=== PATIENT | male | born 1955 | race Caucasian/White ===

== ENCOUNTER 2022-07-03 17:54 | Inpatient (IN) | payer MEDICARE, OTHER ==
[~2022-07-03] VITALS: Ht 182.9 cm; Wt 77.8 kg
[2022-07-03] MEDS ORDERED: LORAZEPAM INJ 2 MG/ML VIAL ONE ×2 (18:21→19:50)
--- NOTE | 2022-07-03 18:21 | NUR ---
iv established. 20G RAC
[2022-07-03] MEDS ORDERED: ONDANSETRON 4 MG TAB.RAPDIS ONE (18:22)
[2022-07-03] MEDS ORDERED: CHLORDIAZEPOXIDE HCL 25 MG CAPSULE ONE ×2 (18:22→18:24)
--- NOTE | 2022-07-03 18:23 | NUR ---
blood drawn and sent to lab
[2022-07-03] MEDS ORDERED: CHLORDIAZEPOXIDE HCL 25 MG CAPSULE PO ONE (18:30)
[2022-07-03] MEDS ORDERED: IV NS 0.9% 1,000 ML BAG IV ONE (18:30)
[2022-07-03] MEDS ORDERED: LORAZEPAM INJ 2 MG/ML VIAL IVP ONE (18:30)
[2022-07-03] MEDS ORDERED: ONDANSETRON 4 MG TAB.RAPDIS PO ONE (18:30)
[2022-07-03 18:35] LABS: BASOPHILS % (AUTO) 0.4 % (0.0-2.0); HEMATOCRIT 44 % (39-51); HEMOGLOBIN 14.5 g/dL (13.5-17.5); LYMPHOCYTES # (AUTO) 0.7 K/uL (0.8-4.8); LYMPHOCYTES % (AUTO) 6.2 % (20.0-44.0); MEAN CORPUSCULAR HGB CONC 33 g/dl (31.0-36.0); MEAN CORPUSCULAR VOLUME 94 fL (80-96); MONOCYTES # (AUTO) 0.8 K/uL (0.1-1.30); MONOCYTES % (AUTO) 7.7 % (2.0-12.0); NEUTROPHILS # (AUTO) 9.1 K/uL (1.8-8.9); NEUTROPHILS % (AUTO) 85.7 % (43.0-81.0); PLATELET COUNT (AUTO) 168 K/uL (150-450); RED BLOOD CELL COUNT(AUTO) 4.63 MIL/uL (4.5-6.0); WHITE BLOOD COUNT (AUTO) 10.6 K/uL (4.3-11.0)
[2022-07-03] MEDS ORDERED: ESCI10TA PO (18:39)
[2022-07-03] MEDS ORDERED: METF-440 PO (18:39)
[2022-07-03] MEDS ORDERED: PANT40TA49 PO (18:39)
[2022-07-03] MEDS ORDERED: ROSU40TA23 PO (18:39)
--- NOTE | 2022-07-03 18:47 | NUR ---
MOVE SHEET SUBMITTED.
--- NOTE | 2022-07-03 18:57 | NUR ---
COVID SWAB COLLECTED AND SENT TO LAB
[2022-07-03 19:00] LABS: ALANINE AMINOTRANSFERASE 119 U/L (12-78); ALKALINE PHOSPHATASE 84 U/L (46-116); ASPARTATE AMINOTRANSFERASE 116 U/L (15-37); BILIRUBIN,DIRECT 0.6 mg/dL (0.0-0.2); BILIRUBIN,TOTAL 2.1 mg/dL (0.2-1.0); CALCIUM, SERUM 10.5 mg/dL (8.5-10.1); CARBON DIOXIDE 30 mmol/L (21-32); CHLORIDE 92 mmol/L (98-107); CREATININE 1.3 mg/dL (0.6-1.3); GLUCOSE 184 mg/dL (74-106); MAGNESIUM 1.4 mg/dL (1.8-2.4); POTASSIUM 3.3 mmol/L (3.5-5.1); SODIUM SERUM 138 mmol/L (136-145); TOTAL PROTEIN, SERUM 7.8 g/dL (6.4-8.2); UREA NITROGEN, BLOOD 21 mg/dL (7-18)
[2022-07-03 19:18] LABS: ALCOHOL, BLOOD < 3 mg/dL (0-0)
[2022-07-03] MEDS ORDERED: Magnesium 1GM/D5W 100ML PREMIX 100 ML IV SCH (19:30)
[2022-07-03] MEDS ORDERED: Folic acid 1 MG/0.2 ML VIAL IM ONE (19:30)
[2022-07-03] MEDS ORDERED: LORAZEPAM INJ 2 MG/ML VIAL IV ONE (19:30)
[2022-07-03] MEDS ORDERED: IV LR 1000 ML 1,000 ML IV ONE (19:30)
[2022-07-03] MEDS ORDERED: POTASSIUM CHLORIDE 20 MEQ TAB.PRT.SR PO ONE ×2 (19:30→19:50)
--- NOTE | 2022-07-03 19:30 | NUR ---
1G OF MG STARTED 100ML/HR
[2022-07-03] MEDS ORDERED: Folic acid 1 MG/0.2 ML VIAL ONE (19:49)
[2022-07-03] MEDS ORDERED: MULTIVIT W/MINERALS 1 TAB TABLET ONE (19:49)
[2022-07-03] MEDS ORDERED: Magnesium 1 GM/2 ML VIAL ONE (19:49)
[2022-07-03] MEDS ORDERED: Magnesium 1GM/D5W 100ML PREMIX 200 ML IV ONE (19:54)
--- NOTE | 2022-07-03 20:00 | NUR ---
Jhoan gillespie in ED - 07/03/22 at 2127 by MITESH 1GM MG SULFATE STARTED ON RIGHT AC G20. END TIME 2100H
[2022-07-03] MEDS ORDERED: FOLIC ACID 1 MG TABLET ONE (20:08)
[2022-07-03] MEDS: MULTIVITAMINS,THERAGRAN 1 UDTAB TABLET PO SCH (20:11)
--- NOTE | 2022-07-03 20:20 | NUR ---
SPOKE TO PHARMACIST ABOUT HOW TO EXECUTE MG SULFATE ORDER IN EMR. SHE CANNOT GIVE ME THE ANSWER, WE TRIED SORTING IT OUT BUT NOT WORKING. I INFORMED HER THAT WE WILL MAKE NURSES NOTES WITH REGARDS TO MG SULFATE.
--- NOTE | 2022-07-03 20:30 | NUR ---
FIRST DOSE OF MG END TIME 2029, SECOND DOSE OF 1G MG STARTED 2029
[2022-07-03] MEDS ORDERED: ACETAMINOPHEN 325 MG TABLET PO PRN (21:00)
[2022-07-03] MEDS ORDERED: HYDROCODONE/APAP 5/325MG TABLET PO PRN (21:00)
[2022-07-03] MEDS ORDERED: ONDANSETRON HCL/PF 4 MG/2 ML VIAL IVP PRN (21:00)
[2022-07-03] MEDS ORDERED: Z GUARD REMEDY 4 OZ OINT TP PRN (21:00)
[2022-07-03] MEDS ORDERED: MAGNESIUM HYDROXIDE 30 ML UDC PO PRN (21:00)
[2022-07-03] MEDS ORDERED: Magnesium 1GM/D5W 100ML PREMIX PIGGYBACK IV ONE (21:30)
--- NOTE | 2022-07-03 21:30 | NUR ---
HANDOFF REPORT GIVEN TO ORLY SALGADO FOR INPATIENT SERVICES
--- NOTE | 2022-07-03 21:30 | NUR ---
MG STOP TIME 2129
[2022-07-03 21:41] VITALS: BP 138/80
--- NOTE | 2022-07-03 21:41 | NUR ---
TELE ADMISSION NOTE RECEIVED REPORT FORM ER NURSE NISHANT. PT BEING ADMITTED IN ROOM 308-2 FOR ALCOHOL WITHDRAWAL. PT A/0 X3-4, WITH CONFUSION. ABLE TO MAKE NEEDS KNOWN. PT ABLE TO AMBULATE WITH UNSTEADY GAIT. NO RESPIRATORY DISTRESS NOTED. NO C/O PAIN AT THIS TIME. PHYSICAL ASSESSMENT DONE. PT HAS SCARS TO DAVID KNEE, AND SCABS TO DAVID FA. BELONGING VERIFIED, AND BELONGING LIST SIGNED, AND PLACED IN CHART. PT'S MEDS FROM HOME PLACED IN BAG, AND WILL BE SENT TO PHARMACY. PT HAS LEFT IV ACCESS TO LEFT AC #20 G WITH NS INFUSING AT 75 ML/HR. SAFETY MEASURES IN PLACE: BED IN LOW POSITION, SR UP X2, CALL LIGHT WITHIN REACH. WILL CONTINUE TO MONITOR PT.
--- NOTE | 2022-07-03 21:59 | NUR ---
Jhoan gillespie in [facility] - 07/03/22 at 2159 by ANDRÉS MG STOP TIME 9587
--- NOTE | 2022-07-03 22:00 | NUR ---
PT TRANSFER TO 3 IN STABLE CONDITION ACLS TRASPORT RN AT BEDSIDE. RECEIVING NURSE PRESENT AT TIME OF ADMISSION.
[2022-07-04] VITALS: BP 142/84
[2022-07-04] MEDS ORDERED: DEXTROSE 50%-WATER 50 ML DISP.SYRIN IV PRN (00:30)
[2022-07-04 05:00] VITALS: BP 140/82
[2022-07-04 07:00] VITALS: BP 146/75
[2022-07-04 07:27] LABS: BASOPHILS % (AUTO) 0.2 % (0.0-2.0); HEMATOCRIT 39 % (39-51); HEMOGLOBIN 13.2 g/dL (13.5-17.5); LYMPHOCYTES # (AUTO) 0.8 K/uL (0.8-4.8); LYMPHOCYTES % (AUTO) 11.5 % (20.0-44.0); MEAN CORPUSCULAR HGB CONC 34 g/dl (31.0-36.0); MEAN CORPUSCULAR VOLUME 93 fL (80-96); MONOCYTES # (AUTO) 0.8 K/uL (0.1-1.30); MONOCYTES % (AUTO) 10.7 % (2.0-12.0); NEUTROPHILS # (AUTO) 5.5 K/uL (1.8-8.9); NEUTROPHILS % (AUTO) 77.6 % (43.0-81.0); PLATELET COUNT (AUTO) 129 K/uL (150-450); WHITE BLOOD COUNT (AUTO) 7.1 K/uL (4.3-11.0)
[2022-07-04] MEDS: IV NS 0.9% 1,000 ML IV PRN (07:39)
[2022-07-04] MEDS: BLOOD SUGAR DIAGNOSTIC 1 EACH STRIP IN SCH ×4 (07:39→22:28)
[2022-07-04] MEDS: INSULIN REGULAR, HUMAN 100 UNIT/ML 3 ML VIAL SQ PRN ×2 (07:40→22:28)
--- NOTE | 2022-07-04 07:40 | NUR ---
MOLDING PLASTERER CLOSING NOTE LEFT PATIENT AWAKE IN BED. PATIENT IS A/O X3-4. ON ROOM AIR, TOLERATING WELL, BREATHING EVENLY AND UNLABORED. IV ACCESS TO LEFT AC G#20, WITH NS RUNNING AT 75 ML/HR. NO SOB, DENIES PAIN OR DISCOMFORT AT THIS TIME. PT ON TELE MONITOR, READING SINUS RHYTHM WITH HR: 86. SAFETY MEASURES MAINTAINED. BED IN LOWEST POSITION. SIDE RAILS UP X2. CALL LIGHT WITHIN REACH. WILL ENDORSE PT TO AM SHIFT FOR JIM.
[2022-07-04 07:53] LABS: CALCIUM, SERUM 9.6 mg/dL (8.5-10.1); CREATININE 1.2 mg/dL (0.6-1.3); MAGNESIUM 1.9 mg/dL (1.8-2.4); PHOSPHORUS 2.4 mg/dL (2.5-4.9); POTASSIUM 3.2 mmol/L (3.5-5.1)
--- NOTE | 2022-07-04 08:00 | NUR ---
ICE CREAM FREEZER HELPER Opening Note Patient in bed, awake, A/O x3-4, on RA. IV access at LAC #20G infusing NS @ 75 ml/h, on tele monitoring. Frequently redirect patient per patient's need. Safety measure in place, bed in low, locked, side rails up x2, call light at reach. Will continue to monitor patient.
[2022-07-04] MEDS: FOLIC ACID 1 MG TABLET PO SCH (08:28)
[2022-07-04] MEDS: MULTIVITAMINS,THERAGRAN 1 UDTAB TABLET PO SCH (08:28)
[2022-07-04] MEDS: THIAMINE HCL 100 MG TABLET PO SCH (08:28)
[2022-07-04] MEDS: CHLORDIAZEPOXIDE HCL 25 MG CAPSULE PO SCH ×3 (08:29→16:04)
[2022-07-04] MEDS: PANTOPRAZOLE 40 MG TABLET.DR PO SCH (08:38)
[2022-07-04] MEDS: POTASSIUM CHLORIDE 20 MEQ TAB.PRT.SR PO SCH ×2 (11:03→12:24)
--- NOTE | 2022-07-04 11:17 | NUR ---
SW Consult: SW consult requested for patient possible substance abuse. Pt brought to the hospital due to alcohol withdrawal. Patient presents alert and oriented x3 (self,place,time). Patient appeared to present with somewhat confusion. He stated that he was brought to the hospital due to "suffering from alcohol withdrawal". Pt stated that he has been drinking for years and has been in and out of treatment centers ([facility] and ). [place] [address] [address]; ([phone]). 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 Patient lives with his Andra and would want to return back home. SW assessed for suicidal or homicidal, pt denied. SW assessed any hallucinations visual/auditory, pt denied. SW assessed for substance abuse and pt expressed that he has been drinking alcohol everyday. Pt denied any use of drugs. SW offered pt resources and was accepting of substance abuse referrals. DC PLAN: [place] [address] [address]; ([phone]). Substance Abuse resources provided included: [facility] Substance Abuse Self-Helpline ([facility]) ; [facility] [address] [facility]. [place] [id number] ; [place] [id number] [facility] [address] ; [facility] [address] [facility] [address] ; [facility] [place] [facility] [address] ; [facility] [address] [facility] [address] ; [facility] [address] [facility] [address] ; [facility] Substance Abuse Helpline([facility])-[facility] ; [facility] ; [facility] [place]; [facility] [place]; [facility] [place]; [facility] [place]; [facility] [place]; [facility]; [facility] [place]; [facility], [facility]. Kayla Ramires; Alcoholics Anonymous [facility]; [place] ; Marijuana Anonymous [facility]; Narcotics Anonymous www.na.org;
[2022-07-04 12:14] VITALS: BP 140/87
--- NOTE | 2022-07-04 14:00 | NUR ---
RN NOTE Patient took off tele box and refusing to put back on.
[2022-07-04] MEDS: LORAZEPAM INJ 2 MG/ML VIAL IV PRN ×2 (15:17→20:43)
--- NOTE | 2022-07-04 15:17 | NUR ---
RN NOTE Patient is agitated, walking around the hallway. Tremors also noted. PRN Ativan 1 mg given. Will continue to monitor.
[2022-07-04] MEDS ORDERED: K PHOS NEUTRAL 250 MG TABLET PO ONE (16:00)
--- NOTE | 2022-07-04 19:07 | NUR ---
RN NOTE Patient pulled out IV access. New IV access re-inserted on LFA #20, flushes well.
--- NOTE | 2022-07-04 19:13 | NUR ---
VP CLINICAL Closing Note Patient in bed, awake, A/O x3 confused, on RA, no s/s of distress/SOB/pain. IV LFA #20G running NS @ 75 ml/h. On tele monitoring. Safety measure in place, bed low, locked, side rails up x2, call light at reach. Will endorse to the next shift nurse to continue monitoring patient.
--- NOTE | 2022-07-04 19:48 | NUR ---
noc rn opening note received patient in bed a/ox2 to name and time only. no s/s of apparent distress on room air. denies any pain at this time. Per report patient had series of confusion. refused heart monitor. new IV on left fa#20g, refusing fluid at this time-- will hook patient back on when he permits. safety in place-- bed in lowest, locked position, call light within reach, side rails up X3, bed alarm in place. will continue with the patient's plan of care.
[2022-07-04 20:00] VITALS: BP 160/83
--- NOTE | 2022-07-04 20:00 | NUR ---
noc rn note - high BP Patient pacing around the lee at this time. undirectable SBP 160, unable to re-assess because of patient's non-compliance and behavior at this time. Will re-check once patient's behavior permits.
--- NOTE | 2022-07-04 20:38 | NUR ---
noc rn note Patient pacing around the lee right now, wanting go to "the restaurant". reports being mad. undirectable. Ativan still not due. SELVIN Marie following patient at this time for safety. Charge nurse Buffy said just give Ativan now. Given 1mg. Witnessed with DAMIAN Vila, wasted partial dose on proper bin.
--- NOTE | 2022-07-04 22:15 | NUR ---
noc rn note Patient escalating behavior, even after Ativan 1mg. Had to call security. patient AWOL Risk and trying to get on the elevator and leave. Had to message hospitalist Quang Pathak regarding situation and the consideration for restraint. Quang Pathak ordered 2.5 mg Haldol IM ONCE PRN. No restraint. Will monitor patient for now since Ativan was just given.
--- NOTE | 2022-07-04 23:05 | NUR ---
noc rn note Patient pulled IV line again. New IV access established on Left upper arm #20g. Fluids resumed.
[2022-07-05] MEDS ORDERED: HALOPERIDOL LACTATE INJ 5 MG/ML VIAL IM PRN (00:30)
--- NOTE | 2022-07-05 01:23 | NUR ---
noc rn note patient pulled his IV line again, blood dripping on his arms and floor. Wanted to leave the unit, saying and to quote "I need to get to work", etc etc. undirectable. had to call security again to put the patient back in bed and given Haldol 2.5mg IM as ordered PRN ONCE. Partial dose wasted with RN, Galdino in proper wasting bin. will continue to monitor patient.
--- NOTE | 2022-07-05 01:30 | NUR ---
noc rn note Had a conversation with patient as he requested to talk, patient has been persistent in going to work at this time, even with reorientation to reality, patient is passive and refused to listen. 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 Patient persist on getting his keys and car and his phone and stated that those things are the most important to him at this time. I asked patient where his health fall from those, and he said number 1. I told patient that if he values his health he would let us take care of him. Emotional support given at this time. Patient resting in bed now. Given water and safety in place. No IV access at this time. Will re-insert a new one when patient behavior permits.
[2022-07-05] MEDS: LORAZEPAM INJ 2 MG/ML VIAL IV PRN (06:28)
--- NOTE | 2022-07-05 06:30 | NUR ---
noc rn note IV access established on right hand #20g. Given Ativan 1mg as ordered PRN, patient behavior starting to de-escalate again. Partial dose witnessed by DAMIAN Ahmadi and wasted on proper waste bin. Will monitor.
--- NOTE | 2022-07-05 06:40 | NUR ---
noc rn note Patient resumed in fluids at this time.
[2022-07-05] MEDS: BLOOD SUGAR DIAGNOSTIC 1 EACH STRIP IN SCH ×4 (06:41→23:19)
[2022-07-05] MEDS: INSULIN REGULAR, HUMAN 100 UNIT/ML 3 ML VIAL SQ PRN ×3 (06:42→17:36)
--- NOTE | 2022-07-05 06:42 | NUR ---
noc rn note Blood sugar 97 mg/dL. no coverage needed.
--- NOTE | 2022-07-05 07:13 | NUR ---
noc rn closing note Patient in bed, comfortably sleeping. no s/s of apparent distress on room air. no pain. IV NS running @75mls/hr. all needs attended. safety kept in place the whole shift. patient remains non-compliant. endorsed to DAMIAN Ugalde for continuity of care.
--- NOTE | 2022-07-05 07:30 | NUR ---
SALES COMPENSATION ANALYST OPENING NOTE (DAY SHIFT) Received patient asleep, easily aroused and alert x 2 , confused but able to make his needs known, not good at following directions. Patient is breathing comfortably without any signs osf distress. Observed some tremulousness in hands. Due to report of patient's behavior during manager night, requesting to have a 1:1 safety observer to keep patient from pulling out his IV catheter or flight risk from hospital into the street. Safety precautions maintained: bed in lowest position; bed alarm on; informed narrow gauge engineer to watch for flight risk/ pulling out IV line; side rails up x 3; call goddard/light and bed side table within easy reach of patient. Will continue to care for and monitor patient per MD POC.
[2022-07-05 08:00] VITALS: BP 145/74
[2022-07-05] MEDS: FOLIC ACID 1 MG TABLET PO SCH (09:00)
[2022-07-05] MEDS: MULTIVITAMINS,THERAGRAN 1 UDTAB TABLET PO SCH (09:00)
[2022-07-05] MEDS ORDERED: CLONIDINE HCL 0.1 MG TABLET PO PRN (09:30)
[2022-07-05 09:47] LABS: BASOPHILS % (AUTO) 0.3 % (0.0-2.0); EOSINOPHILS % (AUTO) 0.9 % (0.0-6.0); HEMATOCRIT 35 % (39-51); HEMOGLOBIN 11.7 g/dL (13.5-17.5); LYMPHOCYTES # (AUTO) 1.4 K/uL (0.8-4.8); LYMPHOCYTES % (AUTO) 24.7 % (20.0-44.0); MEAN CORPUSCULAR HGB CONC 33 g/dl (31.0-36.0); MEAN CORPUSCULAR VOLUME 94 fL (80-96); MONOCYTES % (AUTO) 17.2 % (2.0-12.0); NEUTROPHILS # (AUTO) 3.2 K/uL (1.8-8.9); NEUTROPHILS % (AUTO) 56.9 % (43.0-81.0); PLATELET COUNT (AUTO) 103 K/uL (150-450); RED BLOOD CELL COUNT(AUTO) 3.75 MIL/uL (4.5-6.0); WHITE BLOOD COUNT (AUTO) 5.6 K/uL (4.3-11.0)
--- NOTE | 2022-07-05 10:00 | NUR ---
PROGRAM COORDINATOR FOR RESIDENCE LIFE UPDATE NOTE (DAY SHIFT) Patient woke up late and at 100% of breakfast meal without any nausea nor vomiting. Denies pain and is very cooperative allowing the electronic commerce specialist to draw his blood, allowing the nurse to attach the case monitor to his chest and take his medications. Patient is now alert and oriented x 4, calm, no longer pulling on his IV line, cooperating and not trying to leave the hospital. Will continue to monitor and care for patient per MD POC.
[2022-07-05 10:04] LABS: ALBUMIN 2.8 g/dL (3.4-5.0); BILIRUBIN,DIRECT 0.3 mg/dL (0.0-0.2); CREATININE 1.2 mg/dL (0.6-1.3); MAGNESIUM 1.6 mg/dL (1.8-2.4); PHOSPHORUS 4.4 mg/dL (2.5-4.9); POTASSIUM 2.9 mmol/L (3.5-5.1); TOTAL PROTEIN, SERUM 5.9 g/dL (6.4-8.2)
[2022-07-05] MEDS: THIAMINE HCL 100 MG TABLET PO SCH (10:36)
[2022-07-05] MEDS: PANTOPRAZOLE 40 MG TABLET.DR PO SCH (10:36)
[2022-07-05] MEDS: CHLORDIAZEPOXIDE HCL 25 MG CAPSULE PO SCH ×3 (10:36→17:37)
[2022-07-05 12:00] VITALS: BP 134/70
[2022-07-05] MEDS ORDERED: MENTHOL/CETYLPYRD (CEPACOL) 1 LOZ LOZENGE PO PRN (13:00)
[2022-07-05] MEDS: IV NS 0.9% 1,000 ML IV PRN (14:23)
[2022-07-05 16:00] VITALS: BP 141/82
--- NOTE | 2022-07-05 19:00 | NUR ---
WIRE ROPE SALES REPRESENTATIVE CLOSING NOTE (DAY SHIFT) PATIENT IN BED; AWAKE, A/O X 3. STABLE ON ROOM AIR. IN NO ACUTE DISTRESS. PATIENT ACCIDENTLY PULLED OUT HIS iv CATHETER FROM HIS RIGHT WRIST. NO IV ACCESS AT THE MOMENT. ALL NEEDS ATTENDED. ALL DUE MEDS GIVEN ORDERED. SAFETY PRECAUTIONS MAINTAINED. WILL ENDORSE TO SENIOR TELECOMMUNICATIONS CONSULTANT RNELENA, FOR JIM.
[2022-07-05 19:22] LABS: EOSINOPHILS % (MANUAL) 2 % (0-4); LYMPHOCYTES % (MANUAL) 32 % (16-48); MONOCYTES % (MANUAL) 8 % (0-11.0); NEUTROPHILS % (MANUAL) 58 (42-76)
--- NOTE | 2022-07-05 19:45 | NUR ---
RN OPENING NOTE RECEIVED PATIENT IN BED; AWAKE, ALERT AND ORIENTED X 3. ON ROOM AIR; TOLERATING WELL. NOT IN ANY FORM OF RESPIRATORY DISTRESS. DENIES ANY PAIN OR DISCOMFORT. ABLE TO MAKE NEEDS KNOWN. FALL AND SAFETY PRECAUTIONS INITIATED: CALL LIGHT AND TABLE WITHIN REACH, SIDE RAILS UP X 2, BED IN LOWEST LOCKED POSITION. WILL CONTINUE TO MONITOR THROUGHOUT SHIFT.
[2022-07-05 20:00] VITALS: BP 153/89
[2022-07-05] MEDS ORDERED: POTASSIUM CHLORIDE 20 MEQ TAB.PRT.SR PO ONE (20:00)
--- NOTE | 2022-07-05 22:05 | NUR ---
RN NOTE PATIENT IS WORKING ON HIS COMPUTER; REFUSED BLOOD SUGAR CHECKED. "COME BACK IN 30 MINUTES" PER PATIENT'S REQUEST.
--- NOTE | 2022-07-05 23:19 | NUR ---
RN NOTE BLOOD SUGAR 109 mg/dL. NO INSULIN COVERAGE NEEDED.
[2022-07-06] VITALS: BP 152/85
--- NOTE | 2022-07-06 02:00 | NUR ---
RN NOTE PATIENT REFUSED TO BE HOOKED BACK TO TELE MONITOR BOX. CHARGE NURSE CORRINA GARCIA.
[2022-07-06 04:00] VITALS: BP 136/89
[2022-07-06 05:41] LABS: BASOPHILS % (AUTO) 0.6 % (0.0-2.0); EOSINOPHILS % (AUTO) 3.2 % (0.0-6.0); HEMATOCRIT 35 % (39-51); HEMOGLOBIN 11.5 g/dL (13.5-17.5); LYMPHOCYTES # (AUTO) 1.1 K/uL (0.8-4.8); LYMPHOCYTES % (AUTO) 24.5 % (20.0-44.0); MEAN CORPUSCULAR HGB CONC 33 g/dl (31.0-36.0); MEAN CORPUSCULAR VOLUME 95 fL (80-96); MONOCYTES # (AUTO) 0.7 K/uL (0.1-1.30); MONOCYTES % (AUTO) 15.9 % (2.0-12.0); NEUTROPHILS # (AUTO) 2.5 K/uL (1.8-8.9); NEUTROPHILS % (AUTO) 55.8 % (43.0-81.0); PLATELET COUNT (AUTO) 120 K/uL (150-450); RED BLOOD CELL COUNT(AUTO) 3.68 MIL/uL (4.5-6.0); WHITE BLOOD COUNT (AUTO) 4.4 K/uL (4.3-11.0)
[2022-07-06 05:57] LABS: ALBUMIN 2.8 g/dL (3.4-5.0); BILIRUBIN,DIRECT 0.2 mg/dL (0.0-0.2); BILIRUBIN,TOTAL 0.7 mg/dL (0.2-1.0); CALCIUM, SERUM 9.4 mg/dL (8.5-10.1); CREATININE 1.1 mg/dL (0.6-1.3); MAGNESIUM 1.7 mg/dL (1.8-2.4); PHOSPHORUS 4.3 mg/dL (2.5-4.9); POTASSIUM 3.5 mmol/L (3.5-5.1)
--- NOTE | 2022-07-06 06:20 | NUR ---
RN NOTE BLOOD SUGAR 192 mg/dL. NO INSULIN COVERAGE NEEDED.
[2022-07-06] MEDS: BLOOD SUGAR DIAGNOSTIC 1 EACH STRIP IN SCH (06:44)
--- NOTE | 2022-07-06 06:46 | NUR ---
RN CLOSING NOTE PATIENT IN BED; AWAKE, A/O X 3. STABLE ON ROOM AIR. IN NO ACUTE DISTRESS. ALL NEEDS ATTENDED. ALL DUE MEDS GIVEN ORDERED. SAFETY PRECAUTIONS MAINTAINED. ENDORSED TO MORNING SHIFT FOR JIM.
--- NOTE | 2022-07-06 07:30 | NUR ---
BEEF LUGGER OPENING NOTE (DAY SHIFT) Received patient fully awake, easily and alert x 3 , confused about the date but otherwise aware of his situation, location, and and able to follow concepts and communicate clearly. Pt able to make his needs known and cooperatively following directions. Patient is breathing comfortably without any signs of distress. Observed some tremulousness in hands. Patient is calm and allowing night RN to replace his IV catheter to right wrist and allowing the classroom monitor to be applied to his chest. Safety precautions maintained: bed in lowest position; bed alarm on; informed order department supervisor to watch for flight risk/ pulling out IV line; side rails up x 3; call goddard/light and bed side table within easy reach of patient. Will continue to care for and monitor patient per MD POC. Addendum: 07/06/22 at 0818 by AMBER WILL RN Telemetry showing SR from 70s to 90s bpm range.
[2022-07-06 08:00] VITALS: BP 149/87
[2022-07-06] MEDS ORDERED: THIA100T88 PO (08:17)
[2022-07-06] MEDS ORDERED: FOLI0.4T6 PO (08:17)
[2022-07-06] MEDS: PANTOPRAZOLE 40 MG TABLET.DR PO SCH (08:32)
[2022-07-06] MEDS: FOLIC ACID 1 MG TABLET PO SCH (08:32)
[2022-07-06] MEDS: CHLORDIAZEPOXIDE HCL 25 MG CAPSULE PO SCH (08:32)
[2022-07-06] MEDS: MULTIVITAMINS,THERAGRAN 1 UDTAB TABLET PO SCH (08:32)
[2022-07-06] MEDS: THIAMINE HCL 100 MG TABLET PO SCH (08:32)
[2022-07-06] MEDS: Magnesium 1GM/D5W 100ML PREMIX 100 ML IV SCH ×2 (10:00→11:00)
--- NOTE | 2022-07-06 10:32 | NUR ---
WHEAT BUYERMAINTENANCE MECHANIC 2ND SHIFT TO HOME RN NOTE Patient tolerated well the removal of peripheral IV catheter fully intact from right wrist. Patient verbalized understanding of his home care instructions using the teach back method of understanding. Patient departed the [address] Tele Unit at 10:30 AM walking with steady [facility] his home.
[2022-07-06 17:01] LABS: EOSINOPHILS % (MANUAL) 4 % (0-4); LYMPHOCYTES % (MANUAL) 31 % (16-48); MONOCYTES % (MANUAL) 11 % (0-11.0); NEUTROPHILS % (MANUAL) 54 (42-76)
== END 2022-07-06 10:30 | disposition home or self-care (01) | DRG 897 ==
LOC: ER 17:56 → TELE 20:43
PROVIDERS: ADMIT Nurse Practitioner Family; ATTEND Internal Medicine
DX: F10.139 Alcohol abuse with withdrawal, unspecified (principal); E87.20 Acidosis, unspecified; E11.65 Type 2 diabetes mellitus with hyperglycemia; K70.10 Alcoholic hepatitis without ascites; Y90.0 Blood alcohol level of less than 20 mg/100 ml; Z20.822 Contact with and (suspected) exposure to COVID-19; Z79.84 Long term (current) use of oral hypoglycemic drugs; Z79.899 Other long term (current) drug therapy; E87.6 Hypokalemia; R79.89 Other specified abnormal findings of blood chemistry; E83.42 Hypomagnesemia; E78.5 Hyperlipidemia, unspecified; F32.A Depression, unspecified; F41.9 Anxiety disorder, unspecified; R25.1 Tremor, unspecified; Z80.9 Family history of malignant neoplasm, unspecified
CPT/HCPCS: 36415; 76700-TC; 80048-TC; 80061-TC; 80076-TC; 82962-TC; 83735-TC; 84100-TC; 85025-TC; 87081-TC; A4223; C9803; G0378; G0480; J1630; J1815; J2060; J3475; J3490; J7030; J7120; Q0162